=== PATIENT | female | born 1950 | race Asian ===

== ENCOUNTER 2021-06-12 12:23 | Emergency (ER) | payer MEDICAID ==
[~2021-06-12] VITALS: Ht 152.4 cm; Wt 56.2 kg
[2021-06-12] MEDS ORDERED: diphenhydrAMINE 25 MG CAP PO ONE ×2 (12:45→12:52)
[2021-06-12 12:56] LABS: HEMATOCRIT 35.7 % (31.2-41.9); MEAN CORPUSCULAR VOLUME 87.8 fL (75.5-95.3); PLATELET COUNT (AUTO) 230 K/uL (179-408)
[2021-06-12 13:02] LABS: CREATININE 0.8 mg/dL (0.6-1.3); POTASSIUM 3.7 mmol/L (3.5-5.1)
--- NOTE | 2021-06-12 14:00 | NUR ---
Patient discharged to home in stable condition. Written and verbal after care instructions given. Patient verbalizes understanding of instructions. Stressed follow up or return to ER for worsening s/s.
[2021-06-12 14:48] VITALS: BP 131/77
== END 2021-06-12 14:00 | disposition home or self-care (01) ==
LOC: ER 12:23
DX: R60.0 Localized edema (principal); L27.0 Generalized skin eruption due to drugs and medicaments taken internally; T39.315A Adverse effect of propionic acid derivatives, initial encounter; Y92.89 Other specified places as the place of occurrence of the external cause; Z88.6 Allergy status to analgesic agent; Z88.0 Allergy status to penicillin
CPT/HCPCS: 36415; 80048; 85025; 93971; 99284; Q0163; A4663